=== PATIENT | male | born 1960 | race African-American/Black ===

== ENCOUNTER 2019-12-13 05:42 | Emergency (ER) | payer OTHER ==
[~2019-12-13] VITALS: Ht 170.2 cm; Wt 94.1 kg
[2019-12-13] MEDS ORDERED: RABIES IMMUNE GLOBULIN/PF 300 UNITS/ML 5 ML VIAL IM ONE ×2 (07:00→07:15)
[2019-12-13] MEDS ORDERED: RABIES VAC,PF CHICK-EMB CELL 2.5 UNITS/ML SYRINGE IM ONE (07:00)
[2019-12-13] MEDS ORDERED: PERTUSS(ACELL),DIPH,TET VAC/PF 0.5 ML VIAL IM ONE (07:00)
[2019-12-13 08:35] VITALS: BP 149/99
== END 2019-12-13 08:43 | disposition home or self-care (01) ==
LOC: EMS 05:42
DX: S71.151A Open bite, right thigh, initial encounter (principal); E78.00 Pure hypercholesterolemia, unspecified; W54.0XXA Bitten by dog, initial encounter; Y93.89 Activity, other specified; Y92.89 Other specified places as the place of occurrence of the external cause; Y99.8 Other external cause status
CPT/HCPCS: 90375; 90471; 90472; 90675; 90715; 96372

== ENCOUNTER 2019-12-16 05:41 | Emergency (ER) | payer OTHER ==
[~2019-12-16] VITALS: Ht 170.2 cm; Wt 94.1 kg
[2019-12-16] MEDS ORDERED: RABIES VAC,PF CHICK-EMB CELL 2.5 UNITS/ML SYRINGE IM ONE (06:30)
[2019-12-16 06:32] VITALS: BP 147/90
== END 2019-12-16 06:34 | disposition home or self-care (01) ==
LOC: EMS 05:41
DX: S71.151A Open bite, right thigh, initial encounter (principal); E78.00 Pure hypercholesterolemia, unspecified; W54.0XXA Bitten by dog, initial encounter; Y93.89 Activity, other specified; Y92.89 Other specified places as the place of occurrence of the external cause; Y99.8 Other external cause status
CPT/HCPCS: 90471; 90675

== ENCOUNTER 2019-12-20 09:11 | Emergency (ER) | payer OTHER ==
[~2019-12-20] VITALS: Ht 172.7 cm; Wt 81.8 kg
[2019-12-20] MEDS ORDERED: RABIES VAC,PF CHICK-EMB CELL 2.5 UNITS/ML SYRINGE IM ONE ×2 (10:15)
[2019-12-20 10:46] VITALS: BP 126/80
== END 2019-12-20 10:47 | disposition home or self-care (01) ==
LOC: EMS 09:13
DX: Z23 Encounter for immunization (principal); E11.9 Type 2 diabetes mellitus without complications; E78.00 Pure hypercholesterolemia, unspecified; W54.0XXD Bitten by dog, subsequent encounter
CPT/HCPCS: 90471; 90675

== ENCOUNTER 2019-12-29 06:12 | Emergency (ER) | payer OTHER ==
[~2019-12-29] VITALS: Ht 170.2 cm; Wt 94.1 kg
[2019-12-29 06:14] VITALS: BP 135/88
[2019-12-29] MEDS ORDERED: RABIES VAC,PF CHICK-EMB CELL 2.5 UNITS/ML SYRINGE IM ONE (07:15)
== END 2019-12-29 07:35 | disposition home or self-care (01) ==
LOC: EMS 06:12
DX: S00.86XA Insect bite (nonvenomous) of other part of head, initial encounter (principal); L29.9 Pruritus, unspecified; E11.9 Type 2 diabetes mellitus without complications; E78.00 Pure hypercholesterolemia, unspecified; Z23 Encounter for immunization; W57.XXXA Bitten or stung by nonvenomous insect and other nonvenomous arthropods, initial encounter; Y93.89 Activity, other specified; Y92.89 Other specified places as the place of occurrence of the external cause; Y99.8 Other external cause status
CPT/HCPCS: 90471; 90675

== ENCOUNTER 2022-06-17 15:02 | Emergency (ER) | payer OTHER ==
[~2022-06-17] VITALS: Ht 172.7 cm; Wt 84.1 kg
[2022-06-17 16:16] LABS: COVID AG,FIA SOURCE NASOPHARYNGEAL
[2022-06-17] MEDS ORDERED: ACETAMINOPHEN 500 MG TABLET PO ONE (16:30)
[2022-06-17] MEDS ORDERED: SODIUM CHLORIDE 0.9% 2,000 ML IV ONE (16:30)
[2022-06-17] MEDS ORDERED: 0.9% SODIUM CHLORIDE 10 ML SYRINGE IVP PRN (16:30)
[2022-06-17] MEDS ORDERED: AZITHROMYCIN 500 MG/NS 250 ML IV ONE (16:30)
[2022-06-17] MEDS ORDERED: CefTRIAXone 1 GM/DEXTROSE 50 ML IV ONE (16:30)
[2022-06-17 16:39] LABS: INFLUENZA TYPE A NEGATIVE FOR TYPE A (NEGATIVE); INFLUENZA TYPE B NEGATIVE FOR TYPE B (NEGATIVE)
[2022-06-17 17:00] LABS: BASOPHILS % (AUTO) 0.6 % (0.0-2.0); EOSINOPHILS % (AUTO) 0.1 % (1.0-6.0); HEMATOCRIT 44.8 % (41-53); HEMOGLOBIN 14.9 g/dL (13.5-17.5); LYMPHOCYTES # (AUTO) 1.2 K/uL (1.0-4.8); LYMPHOCYTES % (AUTO) 19.3 % (22.0-44.0); MEAN CORPUSCULAR HEMOGLOBIN 34.1 pg (26.0-34.0); MEAN CORPUSCULAR HGB CONC 33.4 G/dL (31.0-37.0); MEAN CORPUSCULAR VOLUME 102 fL (80-100); MONOCYTES # (AUTO) 0.7 K/uL (0.1-1.0); MONOCYTES % (AUTO) 10.5 % (2.0-9.0); NEUTROPHILS # (AUTO) 4.5 K/uL (1.8-7.7); NEUTROPHILS % (AUTO) 69.5 % (40.0-70.0); PLATELET COUNT (AUTO) 246 K/uL (150-450); RED BLOOD CELL COUNT(AUTO) 4.38 MIL/uL (4.50-5.90); RED CELL DISTRIBUTION WIDTH 13.6 % (11.5-14.5)
[2022-06-17 17:17] LABS: LACTIC ACID 1.8 mmol/L (0.4-2.0)
[2022-06-17 17:20] LABS: PROTHROMBIN TIME 10.7 SEC (9.4-11.6)
[2022-06-17 17:38] LABS: APPEARANCE,URINE CLEAR (CLEAR); BILIRUBIN,URINE NEGATIVE (NEGATIVE); GLUCOSE, URINE (UA) NEGATIVE (NEGATIVE); KETONES,URINE NEGATIVE (NEGATIVE); LEUKOCYTE ESTERASE ,URINE NEGATIVE (NEGATIVE); NITRATE,URINE NEGATIVE (NEGATIVE); OCCULT BLOOD,URINE SMALL (NEGATIVE); PH,URINE 5.5 (5.0-8.0); PROTEIN,URINE NEGATIVE (NEGATIVE); UROBILINOGEN,URINE <=1.0 mg/dL (<=1.0)
[2022-06-17 17:45] LABS: CALCIUM, TOTAL 9.3 mg/dL (8.8-10.5); CREATININE 1.47 mg/dL (0.60-1.30); POTASSIUM 3.6 mmol/L (3.5-5.1)
[2022-06-17 17:51] LABS: BILIRUBIN,TOTAL 0.6 mg/dL (0.1-1.0); TOTAL PROTEIN, SERUM 9.2 g/dL (6.4-8.2)
[2022-06-17 17:54] LABS: BACTERIA,URINE Rare /HPF (None Seen); SQUAMOUS EPITHELIAL CELL,UR Rare /LPF (None Seen); WBC,URINE 0-2 /HPF (0-5)
[2022-06-17 18:43] VITALS: BP 114/82
[2022-06-17] MEDS ORDERED: BENZ-70 PO (18:54)
[2022-06-17] MEDS ORDERED: IBUP-2070 PO (18:54)
== END 2022-06-17 19:11 | disposition home or self-care (01) ==
LOC: EMS 15:07
DX: U07.1 COVID-19 (principal); E11.9 Type 2 diabetes mellitus without complications; E78.00 Pure hypercholesterolemia, unspecified; Z98.890 Other specified postprocedural states; Z20.822 Contact with and (suspected) exposure to COVID-19
CPT/HCPCS: 99285; 96365; 71045; 87426; 80053; 81001; 83605; 85025; 85610; 87040; 87804; 36415; 93005; 96368; J0456; J0696; J7030; 87077; 87205

== ENCOUNTER 2022-09-05 09:35 | Emergency (ER) | payer OTHER ==
[~2022-09-05] VITALS: Ht 170.2 cm; Wt 85.0 kg
[~2022-09-05 09:35] MED LIST: BENZ-227 PO; IBUP-1492 PO
[2022-09-05 09:40] VITALS: BP 135/92
== END 2022-09-05 11:01 | disposition home or self-care (01) ==
LOC: EMS 09:48
DX: S01.112D Laceration without foreign body of left eyelid and periocular area, subsequent encounter (principal); E11.9 Type 2 diabetes mellitus without complications; E78.00 Pure hypercholesterolemia, unspecified; Z48.02 Encounter for removal of sutures; Z98.890 Other specified postprocedural states; X58.XXXD Exposure to other specified factors, subsequent encounter
CPT/HCPCS: 99281; Z7502